=== PATIENT | female | born 1960 | race Caucasian/White ===

== ENCOUNTER 2018-04-14 10:45 | Emergency (ER) | payer OTHER ==
--- NOTE | 2018-04-14 11:23 | ERPHSYRPT ---
- History of Present Illness Time Seen by Provider: 04/14/18 11:16 Source: patient, family Exam Limitations: no limitations Patient Subjective Stated Complaint: Pt states "I was standing up and my foot was asleep and when i put pressure on my fot, it bent backwards." Triage Nursing Assessment: PT alert and oriented X 3, skin pwd. PT unable to put weight on her right foot, pt has slight swelling noted to dorsal right foot. Physician History: The patient is a 57-year-old female with family complaining that when she got up out of bed last night use the bathroom, she caught her foot and fell, causing her foot to be hyperextended at the toe joints. She took a hydrocodone that she had from pain management and went back to bed. She also took a hydrocodone today. The pain is significant. Her past medical history is significant for SVT, bariatric surgery, and diabetes. Occurred: yesterday Reason for Fall: slipped, fell from standing pos Injuries/Pain Location: lower extremity (right foot) Loss of Consciousness: no loss of consciousness Quality: sharpness Severity of Pain-Max: moderate Severity of Pain-Current: moderate Modifying Factors: Improves With: pain medication Allergies/Adverse Reactions: Sulfa (Sulfonamide Antibiotics) Allergy (Severe, Verified 04/14/18 11:03) SJS tizanidine [From Zanaflex] Adverse Reaction (Severe, Verified 04/14/18 11:03) sycope Hx Tetanus, Diphtheria Vaccination/Date Given: Yes Hx Influenza Vaccination/Date Given: Yes Hx Pneumococcal Vaccination/Date Given: Yes Immunizations Up to Date: Yes - Review of Systems Constitutional: No Fever, No Chills Eyes: No Symptoms Ears, Nose, & Throat: No Symptoms Respiratory: No Cough, No Dyspnea Cardiac: No Chest Pain, No Edema, No Syncope Abdominal/Gastrointestinal: No Abdominal Pain, No Nausea, No Vomiting, No Diarrhea Genitourinary Symptoms: No Dysuria Musculoskeletal: Fall, Injury Skin: No Rash Neurological: No Dizziness, No Focal Weakness, No Sensory Changes Psychological: No Symptoms Endocrine: No Symptoms Hematologic/Lymphatic: No Symptoms Immunological/Allergic: No Symptoms All Other Systems: Reviewed and Negative - Past Medical History Pertinent Past Medical History: Yes Neurological History: No Pertinent History Other Medical History: osteoporosis. diabetic. chronic neck pain - Past Surgical History Past Surgical History: Yes Other Surgical History: gastric bypass. hysterectomy. left arm - Social History Smoking Status: Never smoker Exposure to second hand smoke: Yes Drug Use: none Patient Lives Alone: No - Female History Hx Now: No - Nursing Vital Signs Nursing Vital Signs: Initial Vital Signs Temperature 99.4 F 04/14/18 10:56 Pulse Rate 98 H 04/14/18 10:56 Respiratory Rate 16 04/14/18 10:56 Blood Pressure 146/67 04/14/18 10:56 O2 Sat by Pulse Oximetry 100 04/14/18 10:56 Pain Scale Pain Intensity 6 - Sycamore Coma Score Best Eye Response (Cy): (4) open spontaneously Best Verbal Response (Sycamore): (5) oriented Best Motor Response (Cy): (6) obeys commands Cy Total: 15 - Physical Exam General Appearance: no apparent distress, alert Head Injury: no evidence of injury Eye Exam: PERRL/EOMI ENT Exam: airway nml Neck Exam: normal inspection, No tenderness Respiratory/Chest Exam: normal breath sounds, No chest tenderness, No respiratory distress Cardiovascular Exam: normal heart sounds, regular rate/rhythm Gastrointestinal Exam: soft, No tenderness, No distention, No guarding, No ecchymosis Rectal Exam: not done Back Exam: normal inspection, No vertebral tenderness Extremity Exam: tenderness (right fore foot), No evidence of injury, No swelling Neurologic Exam: alert, oriented x 3, cooperative, sensation nml, No motor deficits Skin Exam: normal color, warm, dry SpO2 Interpretation: normal SpO2: 100 Oxygen Delivery: Room Air - Radiology Exams Right Foot X-ray Interpretation: Reviewed by me, Teleradiologist Report (per Dr Walsh), Displaced Fracture, Other (tiny curvilinear ossification near base of unknown metatarsal on lateral view.) Ordered Tests: Active Orders 24 hr Category Date Time Status FOOT (MINIMUM 3 VIEWS) Stat Exams 04/14/18 11:27 Completed Medication Summary Discontinued Medications Generic Name Dose Route Start Last Admin Trade Name Freq PRN Reason Stop Dose Admin Ketorolac Tromethamine 60 mg 04/14/18 11:26 04/14/18 11:40 Toradol 30 Mg Injection IM 04/14/18 11:27 60 mg STAT ONE Administration Ketorolac Tromethamine Confirm 04/14/18 11:35 Toradol 30 Mg Injection Administered 04/14/18 11:36 Dose 60 mg .ROUTE .STK-MED ONE - Progress Progress: improved Counseled pt/family regarding: rad results - Departure Time of Disposition: 12:39 Departure Disposition: Home Clinical Impression: Metatarsal fracture Condition: Stable Critical Care Time: No Referrals: ANABELLE CRUZ [Primary Care Provider] - Additional Instructions: You have a small evulsion fracture in the mid part of your right foot. You were given Toradol 60 mg by IM in the ER. Take naproxen 500 mg every 12 hours as needed for pain. Apply ice as needed. Use crutches as needed. Follow-up with Dr. Eulogio Vázquez. His phone number is [phone]. Prescriptions: Naproxen 500 mg PO BID PRN #30 tablet
[2018-04-14] MEDS ORDERED: TORAdol 30 mg Injection IM ONE (11:26)
[2018-04-14] MEDS ORDERED: TORAdol 30 mg Injection ONE (11:35)
--- NOTE | 2018-04-14 11:52 | XRAY ---
Indication: Pain following twisting injury. Comparison: None 3 nonweightbearing views of the right foot demonstrates tiny curvilinear ossification near base of unknown metatarsal only seen on lateral view. Fracture not excluded in the right clinical setting. Elsewhere small heel spurs. Remaining right foot unremarkable.
[2018-04-14 12:09] VITALS: BP 123/61
[2018-04-14 12:46] VITALS: PULSE 82; O2SAT 99
== END 2018-04-14 13:15 | disposition home or self-care (01) ==
LOC: ED 10:45
DX: S92.301A Fracture of unspecified metatarsal bone(s), right foot, initial encounter for closed fracture (principal); W18.39XA Other fall on same level, initial encounter; Y93.9 Activity, unspecified; Y92.003 Bedroom of unspecified non-institutional (private) residence as the place of occurrence of the external cause
CPT/HCPCS: 73630; 96372; 99284; J1885